=== PATIENT | female | born 1945 | race Caucasian/White ===

== ENCOUNTER 2017-05-07 09:54 | Emergency (ER) | payer OTHER ==
[~2017-05-07] VITALS: Ht 157.5 cm; Wt 90.0 kg
[~2017-05-07 09:54] MED LIST: CHLOR50 PO; CRAN1CAP6 PO; LOMO5S PO; MISC1TAB9 PO; NAPR-571 PO; OMEG1CAP50 PO; PHILCAP2 PO; POTA-243 PO; PRIL20TA2 PO; TAB-TAB PO; TUMS500C PO
[2017-05-07 09:58] VITALS: BP 180/96; PULSE 90; RESP 20; TEMP 98; O2SAT 96
[2017-05-07] MEDS ORDERED: CHLO25TA2 PO (10:28)
[2017-05-07] MEDS ORDERED: TUMS500C CHEW (10:28)
[2017-05-07] MEDS ORDERED: PRIL20TA2 PO (10:28)
[2017-05-07] MEDS ORDERED: OMEG1CAP50 PO (10:28)
[2017-05-07] MEDS ORDERED: LOMO5S PO (10:28)
[2017-05-07] MEDS ORDERED: NAPR250T PO (10:28)
[2017-05-07] MEDS ORDERED: POTA-163 PO (10:28)
[2017-05-07] MEDS ORDERED: CRANCAP2 PO (10:28)
[2017-05-07] MEDS ORDERED: BOSW5TAB PO (10:28)
--- NOTE | 2017-05-07 10:57 | PD ---
HPI Chief Complaint: Head Injury Time Seen by Provider: 10:56 Travel History International Travel<30 days: No Contact w/Intl Traveler<30days: No Traveled to known affect area: No History of Present Illness HPI 71-year-old female came to the emergency room with history of head injury after she lost her footing while coming down the steps. Patient says there were no hand rails and hence she was coming down backwards and in the process lost her footing and fell backwards and hit the back of her head. This happened just a little while before coming to the emergency room. She bled a good amount after the fall from the injury of her head. No history of loss of consciousness. She is otherwise a healthy person. FOR[facility]LY [facility], LATER [facility] Past Medical History Narrative Medical List of her past medical, surgical, social and family history was reviewed from the nursing note. Cancer: Yes (UTERINE) Cardiovascular Problems: Yes (HTN) Diabetes: No Gastrointestinal Disorders: Yes (BARROTS SYNDROME.) Hepatitis: No Hiatal Hernia: No Hypertension: Yes Medical other: Yes (GREENE'S ESOPHAGUS) Respiratory: No Immunizations Current: Yes Thyroid Disease: No Tetanus Vaccination: > 5 Years Influenza Vaccination: Yes Past Surgical History Abdominal Surgery: Yes (LAP. CODI) Cholecystectomy: Yes Gynecologic Surgery: Yes (HYSTERECTOMY) Hysterectomy: Yes Oral Surgery: Yes (T &A) Pacemaker: No Tonsillectomy: Yes Other Surgery: Yes Social History Alcohol Use: No Tobacco Use: No Substance Use: No Allergies-Medications (Allergen,Severity, Reaction): Coded Allergies: No Known Allergies (Verified , 05/07/17) Comments No known drug allergies. Reported Meds & Prescriptions Reported Meds & Active Scripts Active Bacitracin Topical 500 Unit/Gm Oint 1 Applic TOPICAL BID 7 Days Reported Potassium Chloride ER (Potassium Chloride) 20 Meq Tab 20 Meq PO DAILY Prilosec (Omeprazole Magnesium) 20 Mg Tab 20 Mg PO DAILY [place] 3 500 500 mg ([place]-3 Fatty Acids) 1 Cap Cap 1 Cap PO DAILY Naproxen 250 Mg Tab 250 Mg PO BID Osteo Bi-Flex One A Day (Yktephoum-Nhywpquknpc-Nzkolzs) 1 Tab 1 Tab PO DAILY Diphenoxylate-Atropine Liq (Diphenoxylate HCl/Atropine) 2.5-0.025 Mg/5 Ml Soln 5 Ml PO QID PRN Cranberry Urinary Comfort (Vitamins C & E) 1 Cap 1 Cap PO DAILY Tums (Calcium Carbonate (Antacid)) 500 Mg Chew 500 Mg CHEW PRN Chlorthalidone 25 Mg Tab 25 Mg PO DAILY Narrative Medication List of her home medications reviewed from the nursing note. Review of Systems Except as stated in HPI: all other systems reviewed are Neg Physical Exam Narrative GENERAL: Awake, alert, obese, moderate distress SKIN: Focused skin assessment warm/dry. HEAD: Right occipital area of the scalp has a 4 mm laceration that is slowly oozing blood. EYES: Pupils equal and round. No scleral icterus. No injection or drainage. ENT: No nasal bleeding or discharge. Mucous membranes pink and moist. NECK: Trachea midline. No JVD. CARDIOVASCULAR: Regular rate and rhythm. No murmur appreciated. RESPIRATORY: No accessory muscle use. Clear to auscultation. Breath sounds equal bilaterally. GASTROINTESTINAL: Abdomen soft, non-tender, nondistended. Hepatic and splenic margins not palpable. MUSCULOSKELETAL: No obvious deformities. No clubbing. No cyanosis. No edema. NEUROLOGICAL: Awake and alert. No obvious cranial nerve deficits. Motor grossly within normal limits. Normal speech. PSYCHIATRIC: Appropriate mood and affect; insight and judgment normal. Data Data Last Documented VS Vital Signs Date Time Temp Pulse Resp B/P Pulse Ox O2 Delivery O2 Flow Rate FiO2 05/07/17 12:30 84 16 178/88 96 Room Air 05/07/17 09:[address] Brain W/O Iv Contrast(Rout) (05/07/17 ) Tetanus/Diphtheria Tox Adult (Tetanus/Di (05/07/17 11:15) Lidocai-Epi 1%-1:100,000 Inj (Xylocaine- (05/07/17 12:45) MDM Medical Decision Making Medical Screen Exam Complete: Yes Emergency Medical Condition: Yes Medical Record Reviewed: Yes Differential Diagnosis Intracranial bleed, skull fracture, scalp laceration Narrative Course 1:[address] scan of the head report is back and does not show any intracranial hemorrhage. The nurse practitioner stapled the wound. Please refer to her notes. Patient will be discharged home. She could not remember her last tetanus shot and she received one today. Procedures EKG Prior to Arrival: No Diagnosis Primary Impression: Fall Qualified Code: W19.XXXA - Fall, initial encounter Additional Impressions: Head injury Qualified Code: S09.90XA - Head injury, initial encounter Occipital scalp laceration Qualified Code: S01.01XA - Occipital scalp laceration, initial encounter Referrals: Primary Care Physician Additional Instructions: Please return to the ER in a week to get the albino taken out. He can also go to see her primary care if they are able to take the albino out. Apply the bacitracin ointment twice a day until the albino are out. Keep the wound clean and dry. Be careful while brushing or combing her hair. Med/Other Pt SpecificInfo: Prescription(s) given Scripts Bacitracin Topical 500 Unit/Gm Oint1 Applic TOPICAL BID 7 Days Ref 0 Prov:Mohinder Caraballo MD 05/07/17 Disposition: 01 DISCHARGE HOME Condition: Stable Mohinder Caraballo MD May 07, 2017 10:57
[2017-05-07] MEDS ORDERED: TETANUS/DIPHTHERIA TOXOID ADULT 0.5 ML VIAL IM ONE (11:15)
--- NOTE | 2017-05-07 11:44 | PD ---
Physical Exam Date Seen by Provider: May 07, 2017 Time Seen by Provider: 11:42 Data Data Last Documented VS Vital Signs Date Time Temp Pulse Resp B/P Pulse Ox O2 Delivery O2 Flow Rate FiO2 05/07/17 09:58 98.0 90 20 180/[address] Brain W/O Iv Contrast(Rout) (05/07/17 ) Tetanus/Diphtheria Tox Adult (Tetanus/Di (05/07/17 11:15) Lidocai-Epi 1%-1:100,000 Inj (Xylocaine- (05/07/17 12:45) MDM Supervised Visit with MILLY: No Narrative Course I was asked to evaluate this patient's head laceration. The patient was initially seen by Dr. Caraballo. Please see her note for full H& P. On my exam the patient is alert and oriented. There is a 2 cm laceration on the right lateral occiput. Mild active bleeding.. Laceration repair was performed. Please see my procedure note for details. Dr. Caraballo retains care of this patient. Please see her note for disposition. Procedures Procedure Narrative LACERATION LOCATION: Right lateral occiput LENGTH: 2 cm NUMBER OF ALBINO: 3 REPAIR: The area of the laceration was prepped with Betadine and sterilely draped. The laceration was infiltrated with 1% lidocaine with epinephrine. The wound was copiously irrigated and explored without evidence of foreign body, tendon injury or neurovascular injury. The wound was closed using surgical albino. This was a single layer repair. The patient was advised to keep the wound clean and dry. Patient tolerated the procedure well. Loulou Anthony May 07, 2017 11:44
[2017-05-07 12:30] VITALS: BP 178/88; PULSE 84; RESP 16; O2SAT 96
[2017-05-07] MEDS ORDERED: LIDOCAINE 1%/EPINEPHrine 1:100,000 SOLN 20 ML VIAL INFIL ONE (12:45)
--- NOTE | 2017-05-07 13:08 | RADRPT ---
EXAM DATE/TIME: 05/07/2017 11:57 [facility] COMPARISON: No previous studies available for comparison. INDICATIONS : Fell down two steps hitting right side of head, scalp laceration. RADIATION DOSE: 34.09 CTDIvol (mGy) MEDICAL HISTORY : Hypertension. Barretts syndrome uterine cancer SURGICAL HISTORY : Hysterectomy. ENCOUNTER: Initial ACUITY: 1 day PAIN SCALE: 0/10 LOCATION: cranial TECHNIQUE: Multiple contiguous axial images were obtained of the head. Using automated exposure control and adj ustment of the mA and/or kV according to patient size, radiation dose was kept as low as reasonably a chievable to obtain optimal diagnostic quality images. DICOM format image data is available electro nically for review and comparison. FINDINGS: CEREBRUM: The ventricles are normal. No evidence of midline shift, mass lesion, hemorrhage or acute infarction . No extra-axial fluid collections are seen. POSTERIOR FOSSA: The cerebellum and brainstem are intact. The 4th ventricle is midline. The cerebellopontine angle i s unremarkable. EXTRACRANIAL: Visualized sinuses are clear. SKULL: The calvaria is intact. No evidence of skull fracture. CONCLUSION: No acute intracranial abnormality is identified. Jaren Martini MD on May 07, 2017 at 13:04 Board Certified Radiologist. This report was verified electronically.
[2017-05-07] MEDS ORDERED: BACI500O9 TOPICAL (13:24)
== END 2017-05-07 13:41 | disposition home or self-care (01) ==
LOC: NEPC 09:54
DX: S09.90XA Unspecified injury of head, initial encounter (principal); S01.01XA Laceration without foreign body of scalp, initial encounter; W19.XXXA Unspecified fall, initial encounter; I10 Essential (primary) hypertension; Z23 Encounter for immunization
CPT/HCPCS: 12001; 70450; 90471; 90714

== ENCOUNTER 2018-01-23 11:44 | Observation (INO) | payer OTHER ==
[~2018-01-23] VITALS: Ht 157.5 cm; Wt 82.0 kg
[~2018-01-23 11:44] MED LIST changes: +BACI500O9 TOPICAL; +BOSW5TAB PO; +CHLO25TA2 PO; -CHLOR50 PO; -CRAN1CAP6 PO; +CRANCAP2 PO; -MISC1TAB9 PO; -NAPR-571 PO; +NAPR250T4 PO; -PHILCAP2 PO; +POTA-163 PO; -POTA-243 PO; -TAB-TAB PO; +TUMS500C CHEW; -TUMS500C PO
[2018-01-23 11:48] VITALS: BP 155/70; PULSE 99; RESP 19; TEMP 98.3; O2SAT 97
--- NOTE | 2018-01-23 12:08 | PD ---
HPI Chief Complaint: Cardiac Complaint Time Seen by Provider: 11:59 Travel History International Travel<30 days: No Contact w/Intl Traveler<30days: No Traveled to known affect area: No History of Present Illness HPI This is a 72-year-old female with history of hypertension who presents for evaluation of palpitations. She reports that symptoms started at 7:30 AM while she was lying down. She reports that she had a sensation that her heart was beating rapidly. She reports that she had slight lightheadedness as well. She reports that she got up, ate breakfast, and eventually her symptoms spontaneously resolved at approximately 10:30 AM. Since then she has been asymptomatic. She denies any associated chest pain, shortness of breath, nausea or vomiting, diaphoresis, abdominal pain. This has never happened before. She denies any known history of structural heart disease, arrhythmia, hyperthyroidism. No other complaints at this time. PFSH Past Medical History Cancer: Yes (UTERINE) Cardiovascular Problems: Yes (HTN) Diabetes: No Gastrointestinal Disorders: Yes (BARROTS SYNDROME.) Hepatitis: No Hiatal Hernia: No Hypertension: Yes Medical other: Yes (GREENE'S ESOPHAGUS) Respiratory: No Immunizations Current: Yes Thyroid Disease: No ?: Not Past Surgical History Abdominal Surgery: Yes (LAP. CODI) Cholecystectomy: Yes Gynecologic Surgery: Yes (HYSTERECTOMY) Hysterectomy: Yes Oral Surgery: Yes (T &A) Pacemaker: No Tonsillectomy: Yes Other Surgery: Yes (HERNIA ABDOMIN) Social History Alcohol Use: No Tobacco Use: No Substance Use: No Allergies-Medications (Allergen,Severity, Reaction): Coded Allergies: No Known Allergies (Verified Adverse Reaction, Unknown, 01/23/18) Reported Meds & Prescriptions Reported Meds & Active Scripts Active Bacitracin Topical 500 Unit/Gm Oint 1 Applic TOPICAL BID 7 Days Reported Potassium Chloride ER (Potassium Chloride) 20 Meq Tab 20 Meq PO DAILY Prilosec (Omeprazole Magnesium) 20 Mg Tab 20 Mg PO DAILY [place] 3 500 500 mg ([place]-3 Fatty Acids) 1 Cap Cap 1 Cap PO DAILY Naproxen 250 Mg Tab 250 Mg PO BID Osteo Bi-Flex One A Day (Fneofhxrc-Tgjemmffrfh-Nzwjnjp) 1 Tab 1 Tab PO DAILY Diphenoxylate-Atropine Liq (Diphenoxylate HCl/Atropine) 2.5-0.025 Mg/5 Ml Soln 5 Ml PO QID PRN Cranberry Urinary Comfort (Vitamins C & E) 1 Cap 1 Cap PO DAILY Tums (Calcium Carbonate (Antacid)) 500 Mg Chew 500 Mg CHEW PRN Chlorthalidone 25 Mg Tab 25 Mg PO DAILY Review of Systems Except as stated in HPI: all other systems reviewed are Neg Physical Exam Narrative GENERAL: Pleasant well-developed well-nourished female no acute distress resting comfortably in hospital bed vital signs reviewed. SKIN: Warm and dry. HEAD: Atraumatic. Normocephalic. EYES: Pupils equal and round. No scleral icterus. No injection or drainage. ENT: No nasal bleeding or discharge. Mucous membranes pink and moist. NECK: Trachea midline. No JVD. CARDIOVASCULAR: Regular rate and rhythm. No murmur appreciated. RESPIRATORY: No accessory muscle use. Clear to auscultation. Breath sounds equal bilaterally. GASTROINTESTINAL: Abdomen soft, non-tender, nondistended. Hepatic and splenic margins not palpable. MUSCULOSKELETAL: No obvious deformities. No clubbing. No cyanosis. No edema. NEUROLOGICAL: Awake and alert. No obvious cranial nerve deficits. Motor grossly within normal limits. Normal speech. Data Data Last Documented VS Vital Signs Date Time Temp Pulse Resp B/P (MAP) Pulse Ox O2 Delivery O2 Flow Rate FiO2 01/23/18 11:48 98.3 99 19 155/70 (98) 97 Orders Orders Electrocardiogram (01/23/18 12:06) Basic Metabolic Panel (Bmp) (01/23/18 12:06) Ckmb (Isoenzyme) Profile (01/23/18 12:06) Complete Blood Count With Diff (01/23/18 12:06) Magnesium (Mg) (01/23/18 12:06) Troponin I (01/23/18 12:06) Chest, Single Ap (01/23/18 12:06) Ecg Monitoring (01/23/18 12:06) Iv Access Insert/Monitor (01/23/18 12:06) Oximetry (01/23/18 12:06) Thyroid Stimulating Hormone (01/23/18 12:08) Aspirin Chew (Aspirin Chew) (01/23/18 13:45) Admit Order (Ed Use Only) (01/23/18 13:59) Place In Observation (01/23/18 ) Vital Signs (Adult) Q4H (01/23/18 13:58) Activity Oob With Assistance (01/23/18 13:58) Elementary Education Teacher / Telemetry .CONTINUOUS (01/23/18 13:58) Intake + Output CABRERA.QSHIFT (01/23/18 13:58) Diet Heart Healthy (01/23/18 Lunch) Sodium Chloride 0.9% Flush (Ns Flush) (01/23/18 14:00) Sodium Chloride 0.9% Flush (Ns Flush) (01/23/18 21:00) Acetaminophen (Tylenol) (01/23/18 14:00) Ondansetron Inj (Zofran Inj) (01/23/18 14:00) Comprehensive Metabolic Panel (01/24/18 06:00) Complete Blood Count With Diff (01/24/18 06:00) Troponin I (01/23/18 13:58) Troponin I (01/23/18 16:58) Troponin I (01/23/18 19:58) Electrocardiogram (01/23/18 13:58) Electrocardiogram (01/23/18 19:58) Resp Oxygen Sj C Titrat 1-4 L (01/23/18 ) Pt Request For Service (01/23/18 13:58) Case Management Consult (01/23/18 13:58) Enoxaparin Inj (Lovenox Inj) (01/23/18 15:00) Scd Bilateral/Knee High CABRERA.BID (01/23/18 13:58) Denny Bilateral/Knee High CABRERA.QSHIFT (01/23/18 13:58) Naloxone Inj (Narcan Inj) (01/23/18 14:00) Docusate Sodium-Senna (Annette-Colace) (01/23/18 21:00) Magnesium Hydroxide Liq (Milk Of Magnesi (01/23/18 14:00) Sennosides (Senokot) (01/23/18 14:00) Bisacodyl Supp (Dulcolax Supp) (01/23/18 14:00) Lactulose Liq (Lactulose Liq) (01/23/18 14:00) Consult Cardiology (01/23/18 ) Holter Monitor Recording (01/23/18 ) Pantoprazole (Protonix) (01/24/18 09:00) Labs Laboratory Tests Test 01/23/18 12:17 White Blood Count 9.6 TH/MM3 Red Blood Count 5.09 MIL/MM3 Hemoglobin 15.0 GM/DL Hematocrit 43.8 % Mean Corpuscular Volume 86.1 FL Mean Corpuscular Hemoglobin 29.5 PG Mean Corpuscular Hemoglobin Concent 34.2 % Red Cell Distribution Width 13.9 % Platelet Count 275 TH/MM3 Mean Platelet Volume 10.1 FL Neutrophils (%) (Auto) 76.7 % Lymphocytes (%) (Auto) 16.9 % Monocytes (%) (Auto) 5.3 % Eosinophils (%) (Auto) 0.7 % Basophils (%) (Auto) 0.4 % Neutrophils # (Auto) 7.3 TH/MM3 Lymphocytes # (Auto) 1.6 TH/MM3 Monocytes # (Auto) 0.5 TH/MM3 Eosinophils # (Auto) 0.1 TH/MM3 Basophils # (Auto) 0.0 TH/MM3 CBC Comment DIFF FINAL Differential Comment Blood Urea Nitrogen 22 MG/DL Creatinine 1.13 MG/DL Random Glucose 161 MG/DL Calcium Level 9.3 MG/DL Magnesium Level 1.8 MG/DL Sodium Level 142 MEQ/L Potassium Level 3.8 MEQ/L Chloride Level 105 MEQ/L Carbon Dioxide Level 23.6 MEQ/L Anion Gap 13 MEQ/L Estimat Glomerular Filtration Rate 47 ML/MIN Total Creatine Kinase 71 U/L Troponin I 0.38 NG/ML Thyroid Stimulating Hormone 3rd Gen 0.963 uIU/ML MDM Medical Decision Making Medical Screen Exam Complete: Yes Emergency Medical Condition: Yes Medical Record Reviewed: Yes Differential Diagnosis Electrolyte abnormality, PVCs, PACs, atrial fibrillation, ventricular tachycardia, svt Narrative Course The patient was placed on ECG monitoring pulse oximetry. A 12-lead EKG was obtained revealing sinus rhythm, rate 91. Lab work, chest x-ray been ordered. CBC is unremarkable. BMP reveals a BUN of 22, creatinine 1.13, GFR 47, glucose 161. Troponin is elevated 0.38. TSH is 0.963. Full dose aspirin provided. At this point time the plan is to admit the patient for further evaluation of her episode of palpitations and tachycardia at home with associated elevated troponin. Diagnosis Primary Impression: Elevated troponin Additional Impression: Palpitations Admitting Information Admitting Physician Requests: Admit Trace Justice Jan 23, 2018 12:07
--- NOTE | 2018-01-23 12:29 | RADRPT ---
EXAM DATE/TIME: 01/23/2018 12:08 [facility] COMPARISON: No previous studies available for comparison. INDICATIONS : Feeling of abnormal heart rate. MEDICAL HISTORY : None. SURGICAL HISTORY : None. ENCOUNTER: Initial ACUITY: 1 day PAIN SCORE: 0/10 LOCATION: Bilateral chest FINDINGS: A single view of the chest demonstrates the lungs to be symmetrically aerated without evidence of mas s, infiltrate or effusion. The cardiomediastinal contours are unremarkable. Osseous structures are intact. CONCLUSION: No acute disease. John Oropeza MD on January 23, 2018 at 12:27 Board Certified Radiologist. This report was verified electronically.
[2018-01-23 12:54] LABS: AUTOMATED NEUTROPHIL # 7.3 TH/MM3 (1.8-7.7); BASOPHIL % 0.4 % (0.0-2.0); EOSINOPHIL # 0.1 TH/MM3 (0-0.4); EOSINOPHIL % 0.7 % (0.0-4.0); HEMATOCRIT 43.8 % (35.0-46.0); LYMPH % 16.9 % (9.0-44.0); LYMPHOCYTE # 1.6 TH/MM3 (1.0-4.8); MEAN CELL VOLUME 86.1 FL (80.0-100.0); MEAN CORPUSCULAR HEMOGLOBIN 29.5 PG (27.0-34.0); MEAN CORPUSCULAR HGB CONC 34.2 % (32.0-36.0); MEAN PLATELET VOLUME 10.1 FL (7.0-11.0); MONO % 5.3 % (0.0-8.0); MONOCYTE # 0.5 TH/MM3 (0-0.9); NEUT % 76.7 % (16.0-70.0); PLATELET COUNT 275 TH/MM3 (150-450); RED BLOOD COUNT 5.09 MIL/MM3 (4.00-5.30); RED CELL DISTRIBUTION WIDTH 13.9 % (11.6-17.2); WHITE BLOOD COUNT 9.6 TH/MM3 (4.0-11.0)
[2018-01-23 13:28] LABS: BICARBONATE 23.6 MEQ/L (21.0-32.0); CALCIUM 9.3 MG/DL (8.5-10.1); CREATININE 1.13 MG/DL (0.50-1.00); MAGNESIUM 1.8 MG/DL (1.5-2.5); TROPONIN I 0.38 NG/ML (0.02-0.05)
[2018-01-23] MEDS ORDERED: ASPIRIN 81 MG CHEW TAB PO ONE (13:45)
[2018-01-23] MEDS ORDERED: NALOXONE HCL 0.4 MG/ML AMP IV PUSH PRN (14:00)
[2018-01-23] MEDS ORDERED: MAGNESIUM HYDROXIDE SUSP 30 ML CUP PO PRN (14:00)
[2018-01-23] MEDS ORDERED: LACTULOSE SYRUP 20 GM/30 ML CUP PO PRN (14:00)
[2018-01-23] MEDS ORDERED: BISACODYL 10 MG SUPP RECTAL PRN (14:00)
[2018-01-23] MEDS ORDERED: SODIUM CHLORIDE 0.9% FLUSH 10 ML FLUSH IV FLUSH PRN (14:00)
[2018-01-23] MEDS ORDERED: ONDANSETRON HCL 4 MG/2 ML VIAL IVP PRN (14:00)
[2018-01-23] MEDS ORDERED: SENNOSIDES 8.6 MG TAB PO PRN (14:00)
[2018-01-23] MEDS ORDERED: ACETAMINOPHEN 325 MG TAB PO PRN (14:00)
--- NOTE | 2018-01-23 14:03 | PD ---
Physical Exam Narrative I, Dr. Kenyon, have reviewed the advance practice practitioner's documentation and am in agreement, met with the patient face to face, made the diagnosis, and the medical decision making was done by me. *My assessment and Findings: Arrhythmia vs. hyperthyroidism 72yo F with PMH of HTN here with c/o palpitation since 7:30am today that lasted for 3 hours. Pt said she may have some sob at the time. Pt denies any chest pain at the time or now. Pt is asymptomatic now. Never had this before. Denies any n/v, abdominal pain, focal weakness or numbness. Labs reviewed, no leukocytosis. H/H normal. TSH normal. Troponin is elevated at 0.38. Pt has no chest pain. Troponin may be elevated secondary to 3 hours of arrhythmia. Will admit pt for telemetry monitoring and serial cardiac enzymes. Pt given aspirin. Data Data Last Documented VS Vital Signs Date Time Temp Pulse Resp B/P (MAP) Pulse Ox O2 Delivery O2 Flow Rate FiO2 01/23/18 11:48 98.3 99 19 155/70 (98) 97 Orders Orders Electrocardiogram (01/23/18 12:06) Basic Metabolic Panel (Bmp) (01/23/18 12:06) Ckmb (Isoenzyme) Profile (01/23/18 12:06) Complete Blood Count With Diff (01/23/18 12:06) Magnesium (Mg) (01/23/18 12:06) Troponin I (01/23/18 12:06) Chest, Single Ap (01/23/18 12:06) Ecg Monitoring (01/23/18 12:06) Iv Access Insert/Monitor (01/23/18 12:06) Oximetry (01/23/18 12:06) Thyroid Stimulating Hormone (01/23/18 12:08) Aspirin Chew (Aspirin Chew) (01/23/18 13:45) Labs Laboratory Tests Test 01/23/18 12:17 White Blood Count 9.6 TH/MM3 Red Blood Count 5.09 MIL/MM3 Hemoglobin 15.0 GM/DL Hematocrit 43.8 % Mean Corpuscular Volume 86.1 FL Mean Corpuscular Hemoglobin 29.5 PG Mean Corpuscular Hemoglobin Concent 34.2 % Red Cell Distribution Width 13.9 % Platelet Count 275 TH/MM3 Mean Platelet Volume 10.1 FL Neutrophils (%) (Auto) 76.7 % Lymphocytes (%) (Auto) 16.9 % Monocytes (%) (Auto) 5.3 % Eosinophils (%) (Auto) 0.7 % Basophils (%) (Auto) 0.4 % Neutrophils # (Auto) 7.3 TH/MM3 Lymphocytes # (Auto) 1.6 TH/MM3 Monocytes # (Auto) 0.5 TH/MM3 Eosinophils # (Auto) 0.1 TH/MM3 Basophils # (Auto) 0.0 TH/MM3 CBC Comment DIFF FINAL Differential Comment Blood Urea Nitrogen 22 MG/DL Creatinine 1.13 MG/DL Random Glucose 161 MG/DL Calcium Level 9.3 MG/DL Magnesium Level 1.8 MG/DL Sodium Level 142 MEQ/L Potassium Level 3.8 MEQ/L Chloride Level 105 MEQ/L Carbon Dioxide Level 23.6 MEQ/L Anion Gap 13 MEQ/L Estimat Glomerular Filtration Rate 47 ML/MIN Total Creatine Kinase 71 U/L Troponin I 0.38 NG/ML Thyroid Stimulating Hormone 3rd Gen 0.963 uIU/ML MDM Supervised Visit with MILLY: Yes Interpretation(s) EKG: NSR 91bpm. Normal axis. No ST segment elevation or depression. Diagnosis Primary Impression: Elevated troponin Additional Impression: Palpitations Admitting Information Admitting Physician Requests: Yoanna Huitron DO Jan 23, 2018 14:03
[2018-01-23 14:20] VITALS: O2SAT 97
[2018-01-23 14:59] VITALS: BP 128/70; PULSE 68; RESP 17; O2SAT 98
[2018-01-23] MEDS ORDERED: ENOXAPARIN SODIUM 40 MG/0.4 ML SYRINGE SQ SCH (15:00)
--- NOTE | 2018-01-23 15:14 | HHI.HP ---
[facility] Flor Collins MD Admission Diagnosis Elevated troponin, palpitations Diagnoses: Chief Complaint: palpitations Travel History International Travel<30 Days: No Contact w/Intl Traveler <30 Da: No Traveled to Known Affected Are: No History of Present Illness This is a very pleasant 72-year-old female with history of hypertension, Ross 's esophagus, GERD who presents for evaluation of palpitations. She reports that symptoms started at 7:30 AM while she was lying down. She reports that she had a sensation that her heart was beating rapidly. She reports that she had slight lightheadedness as well. She reports that she got up, ate breakfast , and eventually her symptoms spontaneously resolved at approximately 10:30 AM. Since then she has been asymptomatic. She denies any associated chest pain, shortness of breath, nausea or vomiting, diaphoresis, abdominal pain. This has never happened before. She denies any known history of structural heart disease , arrhythmia, hyperthyroidism. No other complaints at this time. He was noted on admission. The patient was symptomatic. Cardiology was consulted was seen by Dr. Holt cardiology. Recommend patient be discharged home to follow-up as outpatient with in 2 weeks. Patient agrees to the plan. Review of Systems Except as stated in HPI: all other systems reviewed are Neg Past Family Social History Past Medical History Hypertension, Ross's esophagus, GERD Past Surgical History tonsillectomy /adeno hysterectomy hernia repair Breast biopsy noncancerous nodule ally Reported Medications Last Impressions Chest X-Ray 01/23/18 1206 Signed Impressions: Service Date/Time: Tuesday, January 23, 2018 12:08 - CONCLUSION: No acute disease. John Oropeza MD Allergies: Coded Allergies: No Known Allergies (Verified Adverse Reaction, Unknown, 01/23/18) Family History Father heart problems Mother HTN, dementia Brother esophageal CA Daughter breast CA Social History Quit smoking 30 years Denies EtOH use or illicit drug use Physical Exam Vital Signs Vital Signs Date Time Temp Pulse Resp B/P (MAP) Pulse Ox O2 Delivery O2 Flow Rate FiO2 01/23/18 14:59 68 17 128/70 (89) 98 Room Air 01/23/18 14:20 97 01/23/18 11:48 98.3 99 19 155/70 (98) 97 Physical Exam GENERAL: This is a well-nourished, well-developed patient, in no apparent distress. SKIN: No rashes, ecchymoses or lesions. Cool and dry. HEAD: Atraumatic. Normocephalic. No temporal or scalp tenderness. EYES: Pupils equal round and reactive. Extraocular motions intact. No scleral icterus. No injection or drainage. ENT: Nose without bleeding, purulent drainage or septal hematoma. Throat without erythema, tonsillar hypertrophy or exudate. Uvula midline. Airway patent. NECK: Trachea midline. No JVD or lymphadenopathy. Supple, nontender, no meningeal signs. CARDIOVASCULAR: Regular rate and rhythm without murmurs, gallops, or rubs. RESPIRATORY: Clear to auscultation. Breath sounds equal bilaterally. No wheezes , rales, or rhonchi. GASTROINTESTINAL: Abdomen soft, non-tender, nondistended. No hepato-splenomegaly , or palpable masses. No guarding. MUSCULOSKELETAL: Extremities without clubbing, cyanosis, or edema. No joint tenderness, effusion, or edema noted. No calf tenderness. Negative Homans sign bilaterally. NEUROLOGICAL: Awake and alert. Cranial nerves II through XII intact. Motor and sensory grossly within normal limits. Five out of 5 muscle strength in all muscle groups. Normal speech. Laboratory Laboratory Tests Test 01/23/18 12:17 White Blood Count 9.6 Red Blood Count 5.09 Hemoglobin 15.0 Hematocrit 43.8 Mean Corpuscular Volume 86.1 Mean Corpuscular Hemoglobin 29.5 Mean Corpuscular Hemoglobin Concent 34.2 Red Cell Distribution Width 13.9 Platelet Count 275 Mean Platelet Volume 10.1 Neutrophils (%) (Auto) 76.7 Lymphocytes (%) (Auto) 16.9 Monocytes (%) (Auto) 5.3 Eosinophils (%) (Auto) 0.7 Basophils (%) (Auto) 0.4 Neutrophils # (Auto) 7.3 Lymphocytes # (Auto) 1.6 Monocytes # (Auto) 0.5 Eosinophils # (Auto) 0.1 Basophils # (Auto) 0.0 CBC Comment DIFF FINAL Differential Comment Blood Urea Nitrogen 22 Creatinine 1.13 Random Glucose 161 Calcium Level 9.3 Magnesium Level 1.8 Sodium Level 142 Potassium Level 3.8 Chloride Level 105 Carbon Dioxide Level 23.6 Anion Gap 13 Estimat Glomerular Filtration Rate 47 Total Creatine Kinase 71 Troponin I 0.38 Thyroid Stimulating Hormone 3rd Gen 0.963 Result Diagram: 01/23/18 1217 01/23/18 1217 Imaging Last Impressions Chest X-Ray 01/23/18 1206 Signed Impressions: Service Date/Time: Tuesday, January 23, 2018 12:08 - CONCLUSION: No acute disease. MD Poly Dean VTE Risk Assessment Poly VTE Risk Assessment: Mod/High Risk (score >= 2) Caprini Risk Assessment Model Point Value = 1 Point Value = 2 Point Value = 3 Point Value = 5 Age 41-60 Minor surgery BMI > 25 kg/m2 Swollen legs Varicose veins or History of unexplained or recurrent spontaneous Oral contraceptives or hormone replacement Sepsis (< 1 month) Serious lung disease, including pneumonia (< 1 month) Abnormal pulmonary function Acute myocardial infarction Congestive heart failure (< 1 month) History of inflammatory bowel disease Medical patient at bed rest Age 61-74 Arthroscopic surgery Major open surgery (> 45 min) Laparoscopic surgery (> 45 min) Malignancy Confined to bed (> 72 hours) Immobilizing plaster cast Central venous access Age >= 75 History of VTE Family history of VTE Factor V Leiden Prothrombin [id number] Lupus anticoagulant Anticardiolipin antibodies Elevated serum homocysteine Heparin-induced thrombocytopenia Other congenital or acquired thrombophilia Stroke (< 1 month) Elective arthroplasty Hip, pelvis, or leg fracture Acute spinal cord injury (< 1 month) Prophylaxis Regimen Total Risk Factor Score Risk Level Prophylaxis Regimen 0-1 Low Early ambulation 2 Moderate Order ONE of the following: *Sequential Compression Device (SCD) *Heparin 5000 units SQ BID 3-4 Higher Order ONE of the following medications: *Heparin 5000 units SQ TID *Enoxaparin/Lovenox 40 mg SQ daily (WT < 150 kg, CrCl > 30 mL/min) *Enoxaparin/Lovenox 30 mg SQ daily (WT < 150 kg, CrCl > 10-29 mL/min) *Enoxaparin/Lovenox 30 mg SQ BID (WT < 150 kg, CrCl > 30 mL/min) AND/OR *Sequential Compression Device (SCD) 5 or more Highest Order ONE of the following medications: *Heparin 5000 units SQ TID (Preferred with Epidurals) *Enoxaparin/Lovenox 40 mg SQ daily (WT < 150 kg, CrCl > 30 mL/min) *Enoxaparin/Lovenox 30 mg SQ daily (WT < 150 kg, CrCl > 10-29 mL/min) *Enoxaparin/Lovenox 30 mg SQ BID (WT < 150 kg, CrCl > 30 mL/min) AND *Sequential Compression Device (SCD) Assessment and Plan Assessment and Plan Very pleasant 72-year-old female past medical history of hypertension, Ross' s esophagus, GERD presented with palpitations Elevated troponin Palpitations Hypertension Hyperglycemia Mild JOAO Cr 1.13 on admission. IVF, encouraged PO intake/hydration EKG reviewed and normal Patient is symptomatic Troponin elevated at 0.37 No events on telemetry Blood pressure is normal at this time Patient was admitted on telemetry, troponin trended, EKG trend. Check lipid panel and hemoglobin A1c as outpatient Evaluated by cardiology Dr. Tillman. Recommends follow-up as outpatient in his clinic 2 weeks Continue home medications at discharge DVt ppx scd/teds/lovenox Discharge planning The patient was seen and evaluated by Dr. Holt cardiology cleared the patient for discharge. Patient to follow-up in [address] Holt Discharge home in stable condition to follow-up with PCP and consultants as outpatient Diet healthy heart diet, diabetic diet Activity ad yuan. as tolerated Medications per medications reconciliations Discussed Condition With Patient, family at bedside, nurse, ED physician Alejandra Guy MD Jan 23, 2018 15:14
[2018-01-23] MEDS ORDERED: SODIUM CHLOR 0.9% 1000 ML INJ 1,000 ML IV SCH (15:45)
--- NOTE | 2018-01-23 16:35 | HHI.DCPOC ---
Discharge Care Plan Goals to Promote Your Health * To prevent worsening of your condition and complications * To maintain your health at the optimal level Directions to Meet Your Goals Take your medications as prescribed Follow your dietary instruction Follow activity as directed Keep your appointments as scheduled Take your immunizations and boosters as scheduled If your symptoms worsen call your PCP, if no PCP go to Urgent Care Center or Emergency Room Smoking is Dangerous to Your Health. Avoid second hand smoke Call the 24-hour hour crisis hotline for domestic abuse at Alejandra Guy MD Jan 23, 2018 16:35
[2018-01-23] MEDS ORDERED: ENALAPRILAT 1.25 MG/ML VIAL IV PUSH PRN (16:45)
--- NOTE | 2018-01-23 17:20 | MB ---
cc: Alireza Paez MD DATE: 01/23/2018 REASON FOR CONSULTATION: Palpitations. HISTORY OF PRESENT ILLNESS: Mrs. Acevedo is a 72-year-old female with history of high blood pressure, obesity who woke up last night with palpitations. The symptoms resolved, explained to the and was brought to the emergency room for evaluation. The chart was reviewed. The patient was evaluated. ALLERGIES: NONE. SOCIAL HISTORY: The patient stopped smoking over 30 years ago. FAMILY HISTORY: Noncontributory to her current medical condition. MEDICATIONS: She is on aspirin 324 mg a day. She is on Lovenox subcutaneously. She is taking at home chlorthalidone for her blood pressure. REVIEW OF SYSTEMS: She referred feeling better. No chest pain or chest discomfort. PHYSICAL EXAMINATION: GENERAL: Alert, fully oriented, pleasant. VITAL SIGNS: Her blood pressure is 128/70, pulse 68, respiratory rate 18. LUNGS: Good air entry bilaterally. CARDIOVASCULAR: S1, S2. No gallop. No murmur. ABDOMEN: Soft. No mass. No bruits. Obese. EXTREMITIES: No edema. ELECTROCARDIOGRAM: Sinus rhythm. No acute ST and T-wave changes. LABORATORY STUDIES: Hemoglobin 15, white blood cell 9.6. Potassium 3.8, creatinine 1.13. Troponin 0.38. ASSESSMENT AND RECOMMENDATIONS: Mrs. Acevedo is currently stable. She has no chest pain, no chest discomfort. She had palpitation last night that resolved. TSH is 0.963, that is okay. By the time she came to the emergency room, palpitation was resolved. The patient right now is reading and playing on her cell phone. My recommendation is observation. If continues to be stable, can be discharged home and follow up as an outpatient. Alireza Paez MD HS/JOSE L , 04:50 PM , 05:18 PM
[2018-01-23] MEDS ORDERED: SODIUM CHLORIDE 0.9% FLUSH 10 ML FLUSH IV FLUSH SCH (21:00)
[2018-01-23] MEDS ORDERED: DOCUSATE SODIUM 50 MG/SENNA 8.6 MG TAB PO SCH (21:00)
[2018-01-24] MEDS ORDERED: PANTOPRAZOLE SOD 20 MG DELAYED RELEASE TAB PO SCH (09:00)
--- NOTE | 2018-01-25 00:45 | EKG ---
Date Performed: 01/23/2018 Time Performed: 11:59:44 PTAGE: 72 years EKG: Sinus rhythm NORMAL ECG INTERPRETATION BASED ON A DEFAULT AGE OF 40 YEARS PREVIOUS TRACING : 03/17/1995 10.17 Since the previous tracing, no significant change not ed DOCTOR: Dedrick Esteves Interpretating Date/Time 01/25/2018 00:44:49
== END 2018-01-24 16:40 | disposition home or self-care (01) ==
LOC: NEPC 11:44 → NEDA 14:02
PROVIDERS: ADMIT Internal Medicine; ATTEND Internal Medicine
DX: R00.2 Palpitations (principal); R73.9 Hyperglycemia, unspecified; R74.8 Abnormal levels of other serum enzymes; I10 Essential (primary) hypertension; N17.9 Acute kidney failure, unspecified; K21.9 Gastro-esophageal reflux disease without esophagitis; K22.70 Barrett's esophagus without dysplasia; Z87.891 Personal history of nicotine dependence; Z90.710 Acquired absence of both cervix and uterus; Z80.3 Family history of malignant neoplasm of breast; Z80.0 Family history of malignant neoplasm of digestive organs; Z82.49 Family history of ischemic heart disease and other diseases of the circulatory system
CPT/HCPCS: 71045; 80048; 82550; 83735; 84443; 84484; 85025; 93005; 99285; G0378; J1650; J7030

== ENCOUNTER 2018-07-19 04:26 | Observation (INO) ==
--- NOTE | 2018-07-19 04:59 | ED ---
HPI General Chief Complaint: Arrhythmia / Palpitations Stated Complaint: High heart rate Time Seen by Provider: 07/19/18 04:37 Source: patient Mode of arrival: ambulatory Limitations: no limitations History of Present Illness HPI narrative: Patient is a 72-year-old female who was lying in bed at night worrying about her birthday alliance party and all the thing she had to prepare she suddenly felt her heart as she turned onto her right side trying to go to sleep go into a rapid arrhythmia she feels her heart is regular it is rapid and she comes in heart rate is 174 irregular A. fib appearance on the EKG as well as on the monitor, blood pressure is within normal limits her oxygen saturation is normal she says she had this feeling once 2 years ago. And apparently she quickly converted and she was never needed to be put on anticoagulation she is on no arrhythmic meds at this time she is not on a beta-trinh she is not on Cardizem and she is not on any blood thinner she had seen Dr. Paez after the last episode but has not had a follow-up since MD complaint: Reports rapid heart beat, "heart racing", palpitations and irregular heart beat Onset (ago): hour(s) Time: 03:00 Duration: constant Severity: similar to previous episodes Context: Reports occurred during rest Arrhythmia history: Reports atrial fibrillation Related Data Home Medications Medication Instructions Recorded Confirmed Lactobacillus acidophilus 1,400 mmu cells PO DAILY 07/19/18 07/19/18 [Probiotic Acidophilus] chlorthalidone 25 mg PO DAILY 07/19/18 07/19/18 melatonin 5 mg PO HS PRN 07/19/18 07/19/18 naproxen sodium [Aleve] 220 mg PO BID PRN 07/19/18 07/19/18 omeprazole 20 mg PO DAILY 07/19/18 07/19/18 potassium chloride 20 meq PO DAILY 07/19/18 07/19/18 Previous Rx's Medication Instructions Recorded apixaban [Eliquis] 5 mg PO BID #60 tab 07/19/18 metoprolol tartrate 25 mg PO BID #60 tab 07/19/18 Allergies Allergy/AdvReac Type Severity Reaction Status Date / Time No Known Allergies AdvReac Unknown Uncoded 01/23/18 11:56 Review of Systems ROS: all other systems reviewed are negative FORMERLY [facility], [facility]–1983 Medical History Medical History Atrial fibrillation (Acute) GERD (gastroesophageal reflux disease) (Acute) History of hysterectomy (Acute) Surgical History Surgical History History of hernia repair (Acute) Family History Family History Other Osteoarthritis Social History Social History Smoking Status: Never smoker How Often Do You Have a Drink Containing Alcohol: Never Recent Travel in [facility] within the Last 8 Weeks: No Recent Out of Country Travel within the Last 8 Weeks: No Immunization History Tetanus Immunization: <5 Years Tetanus Immunization Year if Known: 2017 Exam Narrative Exam Narrative: GENERAL: awake alert no obvious distress SKIN: Warm and dry. HEAD: Atraumatic. Normocephalic. EYES: Pupils equal and round. No scleral icterus. No injection or drainage. ENT: No nasal bleeding or discharge. Mucous membranes pink and moist. NECK: Trachea midline. No JVD. CARDIOVASCULAR: rapid and irregular afib RVR RESPIRATORY: No accessory muscle use. Clear to auscultation. Breath sounds equal bilaterally. GASTROINTESTINAL: Abdomen soft, non-tender, nondistended. Hepatic and splenic margins not palpable. MUSCULOSKELETAL: Extremities without clubbing, cyanosis, or edema. No obvious deformities. NEUROLOGICAL: Awake and alert. No obvious cranial nerve deficits. Motor grossly within normal limits. Five out of 5 muscle strength in the arms and legs. Normal speech. PSYCHIATRIC: Appropriate mood and affect; insight and judgment normal. Course Initial Documented Vital Signs Temperature 97.9 F 07/19/18 04:30 Pulse Rate 127 H 07/19/18 04:30 Respiratory Rate 18 07/19/18 04:30 Blood Pressure 149/98 H 07/19/18 04:30 Pulse Oximetry 99 07/19/18 04:30 Last Documented Vital Signs Temperature 98.2 F 07/19/18 16:00 Pulse Rate 60 07/19/18 18:00 Respiratory Rate 18 07/19/18 16:00 Blood Pressure 144/67 H 07/19/18 16:00 Pulse Oximetry 99 07/19/18 19:21 Medical Decision Making MDM Narrative Medical decision making narrative: She was placed on a Cardizem drip after receiving 20 mg IV slow push of Cardizem which slows her heart rate down from 174-98 however she is still irregular and in A. fib she has not converted back to sinus she will need to be admitted put on a Cardizem drip and seen by cardiology for possible cardiac conversion Medical Screen Exam Complete: Yes Emergency Medical Condition: Yes Differential Diagnosis Differential Diagnosis: pt is in A. fib RVR could be due to stress could be due to caffeine stimulation could be due to vagal stimulation could be due to intrinsic sinus issues like slight imbalance Lab Data Result diagrams: 07/19/18 05:04 07/19/18 05:04 Lab Results 07/19/18 07/19/18 Range/Units 05:04 05:04 WBC 8.4 (4.0-11.0) th/mm3 RBC 4.91 (4.00-5.30) mil/mm3 Hgb 14.6 (11.6-15.3) gm/dL Hct 43.8 (35.0-46.0) % MCV 89.2 (80.0-100.0) fL MCH 29.8 (27.0-34.0) pg MCHC 33.4 (32.0-36.0) % RDW 14.5 (11.6-17.2) % Plt Count 241 (150-450) th/mm3 MPV 10.2 (7.0-11.0) fL Neut % (Auto) 58.3 (16.0-70.0) % Lymph % (Auto) 30.0 (9.0-44.0) % Jewell % (Auto) 7.5 (0.0-8.0) % Eos % (Auto) 3.5 (0.0-4.0) % Baso % (Auto) 0.7 (0.0-2.0) % Neut # (Auto) 4.9 (1.8-7.7) th/mm3 Lymph # (Auto) 2.5 (1.0-4.8) th/mm3 Jewell # (Auto) 0.6 (0.0-0.9) th/mm3 Eos # (Auto) 0.3 (0.0-0.4) th/mm3 Baso # (Auto) 0.1 (0.0-0.2) th/mm3 WBC Differential . Differential Comment Auto diff final Sodium 140 (136-145) meq/L Potassium 4.1 (3.5-5.1) meq/L Chloride 105 (98-107) meq/L Carbon Dioxide 27.3 (21.0-32.0) meq/L Anion Gap 8 (5-15) meq/L BUN 20 H (7-18) mg/dL Creatinine 1.07 H (0.50-1.00) mg/dL Estimated GFR 50 L (>89) mL/min Random Glucose 93 (74-106) mg/dL Calcium 9.3 (8.5-10.1) mg/dL Total Bilirubin 0.9 (0.2-1.0) mg/dL AST 36 (15-37) U/L ALT 27 (10-53) U/L Alkaline Phosphatase 78 (45-117) U/L Troponin I Less than 0.02 L (0.02-0.05) ng/mL Total Protein 7.7 (6.4-8.2) g/dL Albumin 4.0 (3.4-5.0) g/dL Imaging Data Radiologist's impression: Chest X-Ray 07/19/18 05:05 CONCLUSION: Cardiomegaly. No acute pulmonary disease. ECG Data Attestation: I personally reviewed and interpreted this ECG as follows: Discharge Plan Discharge Disposition Patient Disposition: 01 Discharge Home Discharge Condition Condition: Stable Discharge Order Discharge Orders: Discharge Order (Routine); Ordered 07/19/18 Ordered By: Juan José Cano Discharge Details Anticipated Discharge Date: 07/19/18 Physicians Team ED Provider: Fred Felipe Primary Care Provider: Flor Collins Attending Provider: Juan José Cano Other Providers: Abhinav Velasco ; [employer] Status ED Status: Left Department Discharge Information Discharge Date/Time: 07/19/18 06:36
[2018-07-19] MEDS ORDERED: dilTIAZem Inj 125 MG in Sodium Chlor 0.9% Inj 100 ML IV.CONT PRN (05:02)
--- NOTE | 2018-07-19 05:20 | XR ---
EXAM DATE: 07/19/2018 5:05 AM EDT AGE/SEX: 72 years / Female INDICATIONS: Palpitations, hypertension. CLINICAL DATA: This is the patient's initial encounter. Patient reports that signs and symptoms have been present for 1 day and indicates a pain score of 0/10. MEDICAL/SURGICAL HISTORY: Hypertension. None. COMPARISON: . FINDINGS: The cardiac silhouette is enlarged in transverse diameter. The lungs are free of acute parenchymal op acity. No effusions are identified. The aortic knob is prominent with tortuosity of the descending th oracic aorta. CONCLUSION: Cardiomegaly. No acute pulmonary disease. Electronically signed by: Geovanny Rader MD 07/19/2018 5:19 AM EDT
[2018-07-19] MEDS ORDERED: Acetaminophen 325 MG Tablet PO PRN (05:30)
[2018-07-19 05:36] LABS: Baso # (Auto) 0.1 th/mm3 (0.0-0.2); Baso % (Auto) 0.7 % (0.0-2.0); Eos # (Auto) 0.3 th/mm3 (0.0-0.4); Eos % (Auto) 3.5 % (0.0-4.0); Hematocrit 43.8 % (35.0-46.0); Hemoglobin 14.6 gm/dL (11.6-15.3); Lymph # (Auto) 2.5 th/mm3 (1.0-4.8); Mean Corpuscular HGB Conc 33.4 % (32.0-36.0); Mean Corpuscular Hemoglobin 29.8 pg (27.0-34.0); Mean Corpuscular Volume 89.2 fL (80.0-100.0); Mean Platelet Volume 10.2 fL (7.0-11.0); Mono # (Auto) 0.6 th/mm3 (0.0-0.9); Mono % (Auto) 7.5 % (0.0-8.0); Neut # (Auto) 4.9 th/mm3 (1.8-7.7); Neut % (Auto) 58.3 % (16.0-70.0); Platelet Count 241 th/mm3 (150-450); Red Blood Count 4.91 mil/mm3 (4.00-5.30); Red Cell Distribution Width 14.5 % (11.6-17.2); White Blood Count 8.4 th/mm3 (4.0-11.0)
[2018-07-19 05:52] LABS: Alkaline Phosphatase 78 U/L (45-117); Total Protein 7.7 g/dL (6.4-8.2)
[2018-07-19 05:55] LABS: Alanine Aminotransferase 27 U/L (10-53); Anion Gap 8 meq/L (5-15); Aspartate Aminotransferase 36 U/L (15-37); Blood Urea Nitrogen 20 mg/dL (7-18); Calcium 9.3 mg/dL (8.5-10.1); Carbon Dioxide 27.3 meq/L (21.0-32.0); Chloride 105 meq/L (98-107); Glomerular Filtration Rate 50 mL/min (>89); Glucose,Random 93 mg/dL (74-106); Potassium 4.1 meq/L (3.5-5.1); Sodium 140 meq/L (136-145)
[2018-07-19] MEDS ORDERED: Enoxaparin Inj 40 MG/0.4 ML Syringe SQ SCH (06:00)
[2018-07-19] MEDS ORDERED: Metoprolol Tartrate 25 MG Tablet PO SCH (09:00)
--- NOTE | 2018-07-19 09:28 | P.HPIM ---
History of Present Illness Primary Care Physician: Flor Collins MD History of Present Illness: Mrs. Acevedo is a 72-year-old female. She came in secondary to tachycardia. Etiology was found to be A. fib RVR. She has a previous history of A. fib RVR in January 2018. At that time she had spontaneous resolution and was treated with avoidance of caffeine. She has been asymptomatic until last night. She reports that she was stressed worried about preparing for a birthday republican for her son. She noticed that her pulse rate was increasing and her blood pressures were dropping so she came into the ER. She was found to have heart rate in the 170s. Is provided with diltiazem and beta-trinh. By this morning , when I am seeing her, she has resolution of her A. fib and no recurrence of A. fib RVR thus far. Inpatient Certification: I certify that the inpatient services were ordered in accordance with Medicare regulations governing the order. This includes certification that hospital inpatient services are reasonable and necessary and in the case of services not specified as inpatient-only under 42 CFR 419.22(n), that they are appropriately provided as inpatient services in accordance to with the 2-midnight benchmark under 43 CFR 412.3(e) Estimated Total Length of Stay (Days): 2 Plans for Post Hospital Care: Home Review of Systems Constitutional: No fevers, no chills no night sweats, no fatigue, no weakness Eyes: No eye pain, no blurry vision, no loss of vision ENT: No sore throat, no ear pain, no rhinorrhea Cardiovascular: No chest pain, tachycardia, palpitations, shortness of breath, no syncope Respiratory: No wheezing, no cough, shortness of breath Gastrointestinal: No abdominal pain, no black tarry stools, no bright red blood per rectum, no vomiting, no diarrhea Musculoskeletal: No joint pain, no muscle cramps, no stiffness Integumentary: No rash, no ulcers, no drainage Neurologic: No sensory loss, no loss of motor function, no dizziness Psychiatric: No behavioral changes, no hallucinations, no suicidal ideations PMF - History History Provided By: Patient - Medical History Medical History: Medical History (Last Updated 07/19/18 @ 04:31 by Ibeth Regalado RN) Atrial fibrillation GERD (gastroesophageal reflux disease) History of hysterectomy - Surgical History Surgical History: Surgical History (Last Updated 07/19/18 @ 04:31 by Ibeth Regalado RN) History of hernia repair - Family History Family History: Family History (Last Updated 07/19/18 @ 09:25 by Juan José Cano MD) Other Osteoarthritis - Tobacco History Smoking Status: Never smoker - Alcohol History How Often Do You Have a Drink Containing Alcohol: Never - Travel History Recent Travel in the [place] Within the Last 8 Weeks: No Recent Travel Out of the Country Within the Last 8 Weeks: No - Immunization History Tetanus Immunization: <5 Years Tetanus Immunization Year if Known: 2016 Medications and Allergies Active Medications: Active Medications Acetaminophen (Tylenol) 650 mg PO Q4H PRN PRN Reason: Temp > 100.4 Apixaban (Eliquis) 5 mg PO BID JOSE Metoprolol Tartrate (Lopressor) 25 mg PO BID JOSE Ondansetron HCl (Zofran Inj) 4 mg IV.PUSH Q6H PRN PRN Reason: NAUSEA OR VOMITING Sodium Chloride (Ns Flush) 2 ml IV.FLUSH UNSCH PRN PRN Reason: FLUSH AFTER USING IV ACCESS Allergies Allergy/AdvReac Type Severity Reaction Status Date / Time No Known Allergies AdvReac Unknown Uncoded 01/23/18 11:56 Home Medications Medication Instructions Recorded Confirmed Type Lactobacillus acidophilus 1,400 mmu cells PO DAILY 07/19/18 07/19/18 History [Probiotic Acidophilus] chlorthalidone 25 mg PO DAILY 07/19/18 07/19/18 History melatonin 5 mg PO HS PRN 07/19/18 07/19/18 History naproxen sodium [Aleve] 220 mg PO BID PRN 07/19/18 07/19/18 History omeprazole 20 mg PO DAILY 07/19/18 07/19/18 History potassium chloride 20 meq PO DAILY 07/19/18 07/19/18 History Exam Vital signs: Vital Signs 07/19/18 04:30 07/19/18 04:51 07/19/18 05:17 Temperature 97.9 F Pulse Rate 127 H 137 H 85 Respiratory Rate 18 18 16 Blood Pressure 149/98 H 133/74 117/57 L Pulse Oximetry 99 99 100 07/19/18 05:28 Temperature Pulse Rate Respiratory Rate Blood Pressure Pulse Oximetry 99 Intake & Output 07/18/18 07/19/18 07/19/18 18:59 06:59 18:59 Weight 81.7 kg Narrative: GENERAL: NAD, A&Ox3 HEAD: Normocephalic. NECK: Supple, trachea midline. No lymphadenopathy. EYES: No scleral icterus. No injection or drainage. CARDIOVASCULAR: Regular rate and rhythm without murmurs, gallops, or rubs. RESPIRATORY: Breath sounds equal bilaterally. No accessory muscle use. GASTROINTESTINAL: Abdomen soft, non-tender, nondistended. MUSCULOSKELETAL: No cyanosis, or edema. SKIN: Warm and dry. NEURO: No focal neurological deficits. Results - Labs CBC & Chem 7: 07/19/18 05:04 07/19/18 05:04 Labs: Short CBC 07/19/18 Range/Units 05:04 WBC 8.4 (4.0-11.0) th/mm3 Hgb 14.6 (11.6-15.3) gm/dL Hct 43.8 (35.0-46.0) % Plt Count 241 (150-450) th/mm3 BMP 07/19/18 05:04 Sodium 140 Potassium 4.1 Chloride 105 Carbon Dioxide 27.3 BUN 20 H Creatinine 1.07 H Calcium 9.3 Cardiac Enzymes 07/19/18 Range/Units 05:04 Troponin I Less than 0.02 L (0.02-0.05) ng/mL Liver Function 07/19/18 Range/Units 05:04 Total Bilirubin 0.9 (0.2-1.0) mg/dL AST 36 (15-37) U/L ALT 27 (10-53) U/L Alkaline Phosphatase 78 (45-117) U/L Albumin 4.0 (3.4-5.0) g/dL - Imaging Impressions Chest X-Ray 07/19/18 05:05 CONCLUSION: Cardiomegaly. No acute pulmonary disease. Caprini VTE Risk Assessment Caprini VTE Risk Assessment: Moderate/High Risk (score >= 2) Caprini Risk Assessment Model: Point Value = 1 Point Value = 2 Point Value = 3 Point Value = 5 Age 41-60 Minor surgery BMI > 25 kg/m2 Swollen legs Varicose veins or History of unexplained or recurrent spontaneous Oral contraceptives or hormone replacement Sepsis (< 1 month) Serious lung disease, including pneumonia (< 1 month) Abnormal pulmonary function Acute myocardial infarction Congestive heart failure (< 1 month) History of inflammatory bowel disease Medical patient at bed rest Age 61-74 Arthroscopic surgery Major open surgery (> 45 min) Laparoscopic surgery (> 45 min) Malignancy Confined to bed (> 72 hours) Immobilizing plaster cast Central venous access Age >= 75 History of VTE Family history of VTE Factor V Leiden Prothrombin [id number] Lupus anticoagulant Anticardiolipin antibodies Elevated serum homocysteine Heparin-induced thrombocytopenia Other congenital or acquired thrombophilia Stroke (< 1 month) Elective arthroplasty Hip, pelvis, or leg fracture Acute spinal cord injury (< 1 month) Prophylaxis Regimen: Total Risk Factor Score Risk Level Prophylaxis Regimen 0-1 Low Early ambulation 2 Moderate Order ONE of the following: *Sequential Compression Device (SCD) *Heparin 5000 units SQ BID 3-4 Higher Order ONE of the following medications: *Heparin 5000 units SQ TID *Enoxaparin/Lovenox 40 mg SQ daily (WT < 150 kg, CrCl > 30 mL/min) *Enoxaparin/Lovenox 30 mg SQ daily (WT < 150 kg, CrCl > 10-29 mL/min) *Enoxaparin/Lovenox 30 mg SQ BID (WT < 150 kg, CrCl > 30 mL/min) AND/OR *Sequential Compression Device (SCD) 5 or more Highest Order ONE of the following medications: *Heparin 5000 units SQ TID (Preferred with Epidurals) *Enoxaparin/Lovenox 40 mg SQ daily (WT < 150 kg, CrCl > 30 mL/min) *Enoxaparin/Lovenox 30 mg SQ daily (WT < 150 kg, CrCl > 10-29 mL/min) *Enoxaparin/Lovenox 30 mg SQ BID (WT < 150 kg, CrCl > 30 mL/min) AND *Sequential Compression Device (SCD) Assessment and Plan - Plan 72 year old female admitted with new onset A-fib with RVR New A-fib A-fib RVR A. fib RVR resolved when seen Cardiology following Eliquis Metoprolol Cardizem Follow on telemetry GERD Continue baseline treatments DVT Prophylaxis Eliquis
[2018-07-19 09:52] VITALS: RESP 18
--- NOTE | 2018-07-19 10:12 | MB ---
cc: Abhinav Velasco MD DATE: 07/19/2018 REASON FOR CONSULTATION: Atrial fibrillation. HISTORY OF PRESENT ILLNESS: The patient is a 72-year-old white female, previously evaluated by Dr. Alireza Paez about 6 months ago for palpitations, with a history of hypertension, Ross esophagus, gastroesophageal reflux disease, who was in her usual state of health up until about 2 a.m. this morning when while lying in bed, awake, worrying about a birthday libertarian, she developed irregular rapid palpitations without associated dizziness, syncope, near syncope, chest pain or shortness of breath. She came to the emergency department where she was found to be in atrial fibrillation with a rapid ventricular response. The patient reports one other episode of irregular palpitations about 6 months ago, and at that time she was recommended reducing caffeine intake. There was no definite evidence for atrial fibrillation at that time. She also denies pedal edema, paroxysmal nocturnal dyspnea. PAST MEDICAL HISTORY: 1. Hypertension. 2. Gastroesophageal reflux disease. 3. Ross esophagus. CARDIAC MEDICATIONS AT HOME: 1. Potassium chloride 20 mEq daily. 2. Chlorthalidone 25 mg daily. PAST SURGICAL HISTORY: 1. Cholecystectomy. 2. Tonsillectomy. 3. Five hernia repairs. 4. Left breast biopsy. 5. Hysterectomy. ALLERGIES: NO KNOWN DRUG ALLERGIES. FAMILY HISTORY: Noncontributory. SOCIAL HISTORY: The patient quit smoking many years ago. She denies alcohol abuse. REVIEW OF SYSTEMS: As in the history of present illness, otherwise negative or noncontributory. She also denies headache, unilateral weakness or numbness, abdominal pain, melena, dyspepsia, bright red blood per rectum. PHYSICAL EXAMINATION: VITAL SIGNS: Her blood pressure 117/57 with a pulse of 85, respirations 16. GENERAL: She is a well-developed, well-nourished white female, in no acute distress. NECK: Jugular venous pressure is normal. Carotid pulses are 2+ bilaterally and without bruits. CHEST: Reveals clear lungs noonan. CARDIAC: She has a regular rhythm and rate without S3, S4, or murmur. ABDOMEN: She has a soft, nontender abdomen. Bowel sounds are present. There is no definite hepatosplenomegaly. EXTREMITIES: Examination reveals no clubbing, cyanosis or edema. LABORATORY DATA: Includes normal CBC. BUN 20, creatinine 1.07. Negative cardiac enzymes. Potassium 4.1. DIAGNOSTIC DATA: EKG from 07/19/2018 at 4:43 a.m. shows atrial fibrillation with a rapid ventricular response, diffuse nonspecific ST abnormality, 4-beat run of wide complex tachycardia suggestive of aberrantly conducted atrial fibrillation. Chest x-ray shows no acute disease. IMPRESSION: Paroxysmal atrial fibrillation, nonsustained wide complex tachycardia in this 72-year-old white female with a history of hypertension, Ross esophagus, gastroesophageal reflux disease. At this time, she is back in sinus rhythm. Except for palpitations the patient was asymptomatic. Overall, there is no evidence for acute coronary syndrome. Echocardiogram is pending. The 2 salvos of wide complex tachycardia are probably aberrantly conducted atrial fibrillation. With respect to her thromboembolic risk, given her age and history of hypertension, it is moderately elevated. RECOMMENDATIONS: 1. Stop intravenous Cardizem and start beta trinh therapy. 2. Start anticoagulation therapy with Eliquis 5 mg b.i.d. 3. Await Her 2-D echocardiogram. 4. If her echo is unremarkable, she can be discharged home later today from a cardiac standpoint. MD LEW Lu/bernabe , 08:24 AM , 08:33 AM MTDKenna
--- NOTE | 2018-07-19 15:39 | ECG ---
Date Performed: 07/19/2018 Time Performed: 04:55:44 PTAGE: 72 years EKG: ATRIAL FIBRILLATION ABNORMAL RHYTHM ECG PREVIOUS TRACING :07/19/2018 @04.43 Compared to previous tracing, atrial fibrillation persists but rate has slowed and ST changes have improved. DOCTOR: Say Dickey Interpretating Date/Time 07/19/2018 15:38:44
--- NOTE | 2018-07-19 15:39 | ECG ---
Date Performed: 07/19/2018 Time Performed: 04:43:50 PTAGE: 72 years EKG: ATRIAL FIBRILLATION WITH RAPID VENTRICULAR RESPONSE WITH ABERRANT CONDUCTION OR VENTRICULAR PREMATURE COMPLEXES NONSPECIFIC ST & T-WAVE ABNORMALITY ABNORMAL RHYTHM ECG PREVIOUS TRACING :01/23/2018 @11.59.44 Compared to previous tracing, atrial fibrillation is new. the very rapid run at the end of the sstrip suggests a run of ventricular tachycardia. Diffuse ST-T wave changes are noted, suggesting ischemia. Clinical correlation is strongly recommended DOCTOR: Say Dickey Interpretating Date/Time 07/19/2018 15:37:24
--- NOTE | 2018-07-19 16:32 | ECHRPT ---
Indication: ATRIAL FIB/FLUTTER CONCLUSIONS Normal left ventricular size. Mild concentric left ventricular hypertrophy. The left ventricular systolic function is normal with an estimated ejection fraction in the range of 60-65%. No atrial level shunt is demonstrated by color flow Doppler interrogation. Trace mitral valve regurgitation. There is trace tricuspid valve regurgitation. The estimated pulmonary arterial pressure is 35 mmHg. BP: / HR: Rhythm: Atrial fibrillation MEASUREMENTS (Male / Female) Normal Values Technical Quality:Fair 2D ECHO LV Diastolic Diameter PLAX 5.0 cm 4.2 - 5.9 / 3.9 - 5.3 cm LV Systolic Diameter PLAX 3.6 cm IVS Diastolic Thickness 1.2 cm 0.6 - 1.0 / 0.6 - 0.9 cm LVPW Diastolic Thickness 1.2 cm 0.6 - 1.0 / 0.6 - 0.9 cm LV Relative Wall Thickness 0.5 RV Internal Dim ED PLAX 2.2 cm LVOT Diameter 1.8 cm Aortic Root Diameter 2.7 cm LA Systolic Diameter LX 3.3 cm 3.0 - 4.0 / 2.7 - 3.8 cm M-MODE AV Cusp Separation MM 1.5 cm DOPPLER AV Peak Velocity 121.0 cm/s AV Peak Gradient 5.9 mmHg AV Mean Gradient 3.0 mmHg AV Velocity Time Integral 25.3 cm LVOT Peak Velocity 97.0 cm/s LVOT Peak Gradient 3.8 mmHg LVOT Velocity Time Integral 23.6 cm AV Area Cont Eq vti 2.4 cm AV Area Cont Eq pk 2.0 cm Mitral E Point Velocity 74.0 cm/s Mitral A Point Velocity 50.8 cm/s Mitral E to A Ratio 1.5 LV E' Lateral Velocity 9.7 cm/s Mitral E to LV E' Lateral Ratio 7.7 LV E' Septal Velocity 6.0 cm/s Mitral E to LV E' Septal Ratio 12.3 TR Peak Velocity 250.0 cm/s TR Peak Gradient 25.0 mmHg Right Atrial Pressure 10.0 mmHg Pulmonary Artery Systolic Pressu 35.0 mmHg Right Ventricular Systolic Press 35.0 mmHg PV Peak Velocity 69.2 cm/s PV Peak Gradient 1.9 mmHg FINDINGS LEFT VENTRICLE Normal left ventricular size. Mild concentric left ventricular hypertrophy. The left ventricular systolic function is normal with an estimated ejection fraction in the range of 60-65%. RIGHT VENTRICLE Normal right ventricular size and systolic function. LEFT ATRIUM The left atrial size is normal. RIGHT ATRIUM The right atrial size is normal. ATRIAL SEPTUM No atrial level shunt is demonstrated by color flow Doppler interrogation. AORTA The aortic root and proximal ascending aorta are normal in size on limited imaging. MITRAL VALVE The mitral valve is not well visualized. Trace mitral valve regurgitation. AORTIC VALVE Trileaflet aortic valve. No aortic valve stenosis or regurgitation. TRICUSPID VALVE There is trace tricuspid valve regurgitation. The estimated pulmonary arterial pressure is 35 mmHg. PULMONARY VALVE No pulmonary valve regurgitation or stenosis. VESSELS The inferior vena cava is normal in size. PERICARDIUM No pericardial effusion. Darius Schulz (Electronically Signed) Final Date:19 July 2018 16:31
[2018-07-19 16:40] VITALS: BP 144/67; TEMP 98.2; O2SAT 99
--- NOTE | 2018-07-19 18:27 | P.DS ---
Date of admission: 07/19/18 05:35 Primary care physician: Flor Collins MD Brief History from admission: Mrs. Acevedo is a 72-year-old female. She came in secondary to tachycardia. Etiology was found to be A. fib RVR. She has a previous history of A. fib RVR in January 2018. At that time she had spontaneous resolution and was treated with avoidance of caffeine. She has been asymptomatic until last night. She reports that she was stressed worried about preparing for a birthday green party for her son. She noticed that her pulse rate was increasing and her blood pressures were dropping so she came into the ER. She was found to have heart rate in the 170s. Is provided with diltiazem and beta-trinh. By this morning , when I am seeing her, she has resolution of her A. fib and no recurrence of A. fib RVR thus far. DS: Medications - Discharge Medications Prescriptions: apixaban [Eliquis] 5 mg PO BID #60 tab metoprolol tartrate 25 mg PO BID #60 tab DS: Summary Hospital Course: Mrs. Acevedo is a 72-year-old female she was admitted secondary to A. fib RVR. She has had this before. Last time this was treated by just avoiding caffeine and this worked for a while but she returned today with A. fib RVR despite avoidance of caffeine. She responded well to metoprolol. Cardiology has selected p.o. metoprolol as a treatment in addition to Eliquis. Echocardiogram was obtained and shows no structural abnormalities to significantly contribute to her A. fib RVR. Rate control has been present since beginning treatment and she is medically stable and cleared for discharge home today with outpatient follow-up with cardiology. - Time Spent with Patient Total time spent providing and/or coordinating discharge services: Less than 30 minutes Exam Vital signs: Vital Signs 07/19/18 04:30 07/19/18 04:51 07/19/18 05:17 Temperature 97.9 F Pulse Rate 127 H 137 H 85 Respiratory Rate 18 18 16 Blood Pressure 149/98 H 133/74 117/57 L Pulse Oximetry 99 99 100 07/19/18 05:28 07/19/18 08:00 07/19/18 09:00 Temperature 98.0 F Pulse Rate 54 L 60 Respiratory Rate 18 Blood Pressure 127/70 Pulse Oximetry 99 98 07/19/18 10:00 07/19/18 11:00 07/19/18 12:00 Temperature 98.0 F Pulse Rate 62 65 60 Respiratory Rate 18 Blood Pressure 126/60 Pulse Oximetry 98 07/19/18 13:00 07/19/18 14:00 07/19/18 16:00 Temperature 98.2 F Pulse Rate 68 62 58 L Respiratory Rate 18 Blood Pressure 144/67 H Pulse Oximetry 99 Intake & Output 07/18/18 07/19/18 07/19/18 18:59 06:59 18:59 Weight 81.7 kg Results Procedures completed during hospitalization: None Labs on day of discharge: Labs from last 24 hours 07/19/18 07/19/18 05:04 05:04 WBC 8.4 RBC 4.91 Hgb 14.6 Hct 43.8 MCV 89.2 MCH 29.8 MCHC 33.4 RDW 14.5 Plt Count 241 MPV 10.2 Neut % (Auto) 58.3 Lymph % (Auto) 30.0 Pitt % (Auto) 7.5 Eos % (Auto) 3.5 Baso % (Auto) 0.7 Neut # (Auto) 4.9 Lymph # (Auto) 2.5 [place] # (Auto) 0.6 Eos # (Auto) 0.3 Baso # (Auto) 0.1 WBC Differential . Differential Comment Auto diff final Sodium 140 Potassium 4.1 Chloride 105 Carbon Dioxide 27.3 Anion Gap 8 BUN 20 H Creatinine 1.07 H Estimated GFR 50 L Random Glucose 93 Calcium 9.3 Total Bilirubin 0.9 AST 36 ALT 27 Alkaline Phosphatase 78 Troponin I Less than 0.02 L Total Protein 7.7 Albumin 4.0 - Impressions ITS Impressions Chest X-Ray 07/19/18 05:05 CONCLUSION: Cardiomegaly. No acute pulmonary disease. Discharge Plan - Discharge Disposition Patient Disposition: Discharge Home - Discharge Condition Condition: Stable - Discharge Order Discharge Orders: Discharge Order (Routine); Ordered 07/19/18 Ordered By: Juan José Cano - Discharge Details Anticipated Discharge Date: 07/19/18 - Physicians Team Primary Care Provider: Flor Collins Attending Provider: Juan José Cano Other Providers: Abhinav Velasco MD ; [employer]
[2018-07-19 19:08] VITALS: PULSE 60
--- NOTE | 2018-07-20 15:40 | ECG ---
Date Performed: 07/19/2018 Time Performed: 08:51:32 PTAGE: 72 years EKG: Sinus bradycardia Normal ECG except for rate NO PREVIOUS TRACING DOCTOR: Aure Mcbride Interpretating Date/Time 07/20/2018 15:38:47
== END 2018-07-19 19:10 | disposition home or self-care (01) ==
LOC: NEPE 04:26 → INTOOBSV 05:35 → NEDA 05:35 → HCIS 06:20
PROVIDERS: ADMIT Hospitalist; ATTEND Hospitalist